=== PATIENT | male | born 1985 | race Caucasian/White ===

== ENCOUNTER → 2020-08-04 09:50 | Outpatient (CLI) | payer OTHER, SELFPAY ==
[2020-08-06 05:57] LABS: COVID19 Sendout Not Detected (Not Detect)
== END ==
PROVIDERS: PCP Family Medicine; Visit Provider Physician Assistant
DX: Z01.812 Encounter for preprocedural laboratory examination (principal)
CPT/HCPCS: 87635

== ENCOUNTER → 2020-08-07 08:14 | Outpatient (CLI) | payer OTHER, SELFPAY ==
--- NOTE | 2020-08-07 09:27 | PM.TREADMILL ---
Cardiac Stress Test Report Referral & Results Date Patient Seen: 08/07/20 Time Patient Seen: 09:00 Requesting provider: Nicholas Mariano Indication: Pre-employment physical Rest ECG: Normal sinus rhythm Procedure Note: Today following both written and verbal informed consent, the patient was exercised according to a standard [facility] protocol. The patient exercised for a total of 12 minutes achieving a maximum heart rate of 189. Patient's maximum systolic blood pressure was 164. This was an estimated 12.8 METs. Normal EKG at rest. CRISTY +10% on active scale. Normal hemodynamic response to exercise. No chest pain or anginal symptoms. No EKG changes except for rare PVCs. Impression: Negative stress test. Low risk for ischemia or occult arrhythmia. Abbott treadmill score of 12 is correlated with 97% survival at 5 years from cardiac causes of mortality. Please note: Actual ECG tracings can be found in the PACS system.
== END ==
PROVIDERS: PCP Family Medicine; Referring Provider Family Medicine; Visit Provider Family Medicine
DX: Z02.1 Encounter for pre-employment examination (principal); Z13.6 Encounter for screening for cardiovascular disorders
CPT/HCPCS: 93016; 93017; 93018